=== PATIENT | male | born 1945 | race Caucasian/White ===

== ENCOUNTER 2021-01-18 21:49 | Emergency (ER) | payer OTHER ==
[~2021-01-18] VITALS: Ht 172.7 cm; Wt 65.8 kg
--- NOTE | 2021-01-18 21:54 | NUR ---
[id number] FROM HOME C/O SYNCOPAL EPISODE +HT +KO -BLOODTHINNERS. TOOK NITRO PRIOR TO SYNCOPAL EPISODE +LAC LEFT UPPER FOREHEAD
[2021-01-18] MEDS ORDERED: ONDANSETRON HCL/PF 4 MG/2 ML VIAL IVP ONE (22:30)
[2021-01-18] MEDS ORDERED: IV NS 0.9% 1,000 ML BAG IV ONE (22:30)
--- NOTE | 2021-01-18 23:06 | NUR ---
Patient does not wish to proceed with medical care recommended by Dr. MENESES. Patient given information related to possible complications, up to and including , which could occur as a result of leaving the hospital at this time. Patient verbalizes understanding of risks involved due to leaving against medical advice. Patient has signed AMA form.
[2021-01-18 23:12] VITALS: BP 122/76
== END 2021-01-18 23:13 | disposition left against medical advice (07) ==
LOC: ER 21:53
DX: S01.01XA Laceration without foreign body of scalp, initial encounter (principal); R55 Syncope and collapse; I10 Essential (primary) hypertension; W22.8XXA Striking against or struck by other objects, initial encounter; Y93.89 Activity, other specified; Y92.89 Other specified places as the place of occurrence of the external cause; Y99.8 Other external cause status
CPT/HCPCS: J7030